=== PATIENT | female | born 1975 | race Caucasian/White ===

== ENCOUNTER 2017-10-23 06:39 | Inpatient (IN) | payer BC ==
[~2017-10-23] VITALS: Ht 175.3 cm; Wt 71.5 kg
[2017-10-23] MEDS ORDERED: SODIUM CHLORID 0.9% 500 ML IV PRN (07:00)
[2017-10-23] MEDS ORDERED: POVIDONE IODINE 5% (ANTISEPSIS KIT) 4 APPLICATIONS EACH NARE PRN (07:00)
[2017-10-23] MEDS ORDERED: CHLORHEXIDINE GLUCONATE 2 % 1 PACK (2 CLOTHS) TOPICAL PRN (07:00)
[2017-10-23] MEDS ORDERED: LACTATED RINGER'S 1000 ML IV PRN (07:00)
[2017-10-23] MEDS ORDERED: METOPROLOL TARTRATE 25 MG TAB PO PRN (07:00)
[2017-10-23] MEDS ORDERED: CHLORHEXIDINE GLUCONATE 4% SOLN 120 ML BTL TOPICAL SCH (07:00)
[2017-10-23] MEDS ORDERED: GENTAMICIN SULFATE 80 MG/2 ML VIAL ONE (08:29)
[2017-10-23] MEDS ORDERED: VANCOMYCIN HCL 1000 MG VIAL ONE (08:29)
[2017-10-23] MEDS ORDERED: SODIUM CHLOR 0.9% 250 ML INJ 250 ML ONE (08:30)
[2017-10-23] MEDS ORDERED: CLINDAMYCIN PHOS 600 MG/4 ML VIAL ONE (09:10)
[2017-10-23] MEDS ORDERED: BUPIVACAINE/EPINEPHRINE 0.25% PF 30 ML VIAL INFIL ONE (10:01)
[2017-10-23] MEDS ORDERED: diphenhydrAMINE HCL 25 MG CAP PO PRN (10:45)
[2017-10-23] MEDS ORDERED: ACETAMINOPHEN/HYDROcodone 325 MG/10 MG TAB PO PRN (10:45)
[2017-10-23] MEDS ORDERED: IOHEXOL 350 MG/ML 10 ML VIAL (for RAD DIAG) IVCONTRAST ONE (10:46)
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
[2017-10-23] MEDS ORDERED: MORPHINE SULFATE 4 MG/ML INJ IV PUSH PRN (11:00)
[2017-10-23] MEDS ORDERED: DO NOT ADM ANY ANTICOAGULANT DRUGS PRN (11:00)
[2017-10-23] MEDS ORDERED: MIDAZOLAM HCL 2 MG/2 ML VIAL ONE (11:05)
[2017-10-23] MEDS ORDERED: *diphenhydrAMINE HCL 50 MG/ML VIAL PERIprocedural Use ONLY ONE (11:08)
[2017-10-23] MEDS: LACTATED RINGER'S 1000 ML INJ 1,000 ML IV SCH ×2 (11:24→20:39)
[2017-10-23] MEDS ORDERED: *MEPERIDINE 25 MG INJ VIAL PERIprocedural Use ONLY ONE (11:47)
[2017-10-23 12:00] VITALS: BP 112/64; PULSE 63; RESP 18; TEMP 96.1; O2SAT 96
[2017-10-23] MEDS ORDERED: ONDANSETRON HCL 4 MG/2 ML VIAL IV ONE (12:00)
[2017-10-23] MEDS ORDERED: PROPOFOL 200 MG/20 ML AMP IV ONE (12:00)
[2017-10-23] MEDS ORDERED: LIDOCAINE HCL 1% PF 5 ML SYRINGE OTHER ONE (12:00)
[2017-10-23] MEDS ORDERED: ROCURONIUM INJ 50 MG/5 ML SYRINGE IV PUSH ONE (12:00)
[2017-10-23] MEDS ORDERED: LACTATED RINGER'S 1000 ML INJ 1,000 ML IV ONE (12:00)
[2017-10-23] MEDS ORDERED: oxyCODONE/ACETAMINOPHEN 10 MG/325 MG TAB PO PRN (14:00)
--- NOTE | 2017-10-23 14:14 | RADRPT ---
EXAM DATE/TIME: 10/23/2017 10:16 [facility] COMPARISON: PELVIS COMPLETE MIN 3 VWS, May 30, 2011, 10:02. INDICATIONS : Removal of hardware. MEDICAL HISTORY : Unobtainable. SURGICAL HISTORY : Unobtainable. ENCOUNTER: Initial ACUITY: 1 day PAIN SCORE: Non-responsive. LOCATION: Bilateral pelvis FINDINGS: Apparent interval removal of fixation hardware in the iliac wings. Surgical clips are seen in the pel vis. No radiopaque foreign bodies are noted. No significant acute bony fractures. CONCLUSION: 1. Status post hardware removal without significant fracture or residual radiopaque components. Sabas Lynch MD on October 23, 2017 at 14:09 Board Certified Radiologist. This report was verified electronically.
[2017-10-23] MEDS: GENTAMICIN 80 MG PREMIX 100 ML IV SCH (15:37)
[2017-10-23 16:00] VITALS: BP 107/53; PULSE 77; RESP 18; TEMP 98.6; O2SAT 98
[2017-10-23 16:15] VITALS: O2SAT 97
[2017-10-23] MEDS: ONDANSETRON HCL 4 MG/2 ML VIAL IVP PRN ×2 (17:14→21:57)
[2017-10-23] MEDS ORDERED: VANCOMYCIN INJ 1,000 MG in SODIUM CHLOR 0.9% 250 ML INJ 250 ML IV SCH (18:00)
[2017-10-23] MEDS: oxyCODONE/ACETAMINOPHEN 10 MG/325 MG TAB PO PRN ×2 (18:29→21:56)
[2017-10-23] MEDS ORDERED: Vancomycin Consult Pharmacy 1 EA OTHER SCH (18:30)
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
[2017-10-23 20:00] VITALS: BP 119/62; PULSE 82; RESP 16; TEMP 99.1; O2SAT 95
[2017-10-24] VITALS: BP 110/57; PULSE 95; RESP 16; TEMP 100.5; O2SAT 97
[2017-10-24 01:30] LABS: CREATININE 0.59 MG/DL (0.50-1.00)
[2017-10-24] MEDS: oxyCODONE/ACETAMINOPHEN 10 MG/325 MG TAB PO PRN ×3 (02:05→12:17)
[2017-10-24] MEDS: GENTAMICIN 80 MG PREMIX 100 ML IV SCH ×2 (02:06→08:00)
[2017-10-24] MEDS: LACTATED RINGER'S 1000 ML INJ 1,000 ML IV SCH ×2 (03:22→16:11)
[2017-10-24] MEDS ORDERED: VANCOMYCIN INJ 1,500 MG in SODIUM CHLORID 0.9% 500 ML INJ 500 ML IV ONE (04:00)
[2017-10-24] MEDS: ONDANSETRON HCL 4 MG/2 ML VIAL IVP PRN ×2 (04:06→07:44)
--- NOTE | 2017-10-24 07:37 | PD.ORT.PN ---
Subjective Subjective Remarks POD 1 s/p SHAYY with I&D of pelvis doing well. had severe pain yesterday but has resolved since then. resting comfortably and has been ambulatory with walker. Objective Vitals Vital Signs Date Time Temp Pulse Resp B/P (MAP) Pulse Ox O2 Delivery O2 Flow Rate FiO2 10/24/17 00:00 100.5 95 16 110/57 (74) 97 10/23/17 20:00 99.1 82 16 119/62 (81) 95 10/23/17 16:15 97 21 10/23/17 16:00 98.6 77 18 107/53 (71) 98 10/23/17 15:15 17 10/23/17 13:06 17 10/23/17 13:06 17 10/23/17 12:00 96.1 63 18 112/64 (80) 96 10/23/17 11:54 97.6 60 12 116/56 (76) 100 Room Air 10/23/17 11:45 64 16 104/53 (70) 100 Room Air 10/23/17 11:30 70 24 122/59 (80) 100 Room Air 10/23/17 11:15 62 21 115/57 (76) 96 Room Air 10/23/17 11:00 70 12 135/65 (88) 100 Room Air 10/23/17 10:55 98.2 93 24 123/56 (78) 99 Room Air I/O 10/23/17 10/23/17 10/23/17 10/24/17 10/24/17 10/24/17 07:00 15:00 23:00 07:00 15:00 23:00 Intake Total 1375 ml 350 ml 1600 ml Output Total 200 ml Balance 1175 ml 350 ml 1600 ml Intake Oral 0 ml IV Total 75 ml 350 ml 1600 ml Other 1300 ml Output Estimated Blood Loss 200 ml # Voids 0 2 Result Diagram: 10/24/17 0040 Objective Remarks Pelvis: dressings clean and dry. intact. NVI bilaterally Assessment & Plan Assessment and Plan 1) Infection of pelvis hardware with removal and I&D - POD 1 -WBAT -daily dressing changes POD 2 -PICC line placement today -patient already had infectious disease consult arrange for outpatient. just awaiting PICC line placement -plan for discharge possibly later today if doing well and line placed -otherwise, plan for DC home tomorrow Manuel Trevino PA/Animal Sticker PA Oct 24, 2017 07:37
[2017-10-24 08:00] VITALS: BP 100/54; PULSE 80; RESP 17; TEMP 98.6; O2SAT 99
[2017-10-24] MEDS ORDERED: ONDANSETRON ODT 4 MG TAB PO PRN (08:15)
[2017-10-24] MEDS ORDERED: ZOFR4TAB PO (08:16)
--- NOTE | 2017-10-24 10:03 | HHI.PR ---
Addendum to Inpatient Note Addendum Reason: Additional Documentation Additional Information patients ID doctor in [place]. meg eddy patient would like to be discharged today. Pending cultures I would recommend levaquin oral and zyvox oral as transitional plan until seen by ID doctor in [place]. This oral regimen in definitely the final ID regimen for patient but until she can be seen in follow up and a PICC line placed. cell: [phone] fax: [phone] Akilah Alonzo MD Oct 24, 2017 10:03
[2017-10-24] MEDS ORDERED: PERC10TA27 PO (10:52)
[2017-10-24 12:00] VITALS: BP 115/61; PULSE 72; RESP 18; TEMP 97.5; O2SAT 100
[2017-10-24] MEDS: ONDANSETRON HCL 4 MG/2 ML VIAL IV PUSH PRN ×3 (12:11→20:32)
[2017-10-24] MEDS ORDERED: VANCOMYCIN 1 GM/200 ML PREMIX IV SCH (13:00)
[2017-10-24 15:25] LABS: AUTOMATED NEUTROPHIL # 6.8 TH/MM3 (1.8-7.7); BASOPHIL % 0.3 % (0.0-2.0); EOSINOPHIL # 0.2 TH/MM3 (0-0.4); HEMATOCRIT 25.8 % (35.0-46.0); HEMOGLOBIN 8.7 GM/DL (11.6-15.3); LYMPH % 6.5 % (9.0-44.0); LYMPHOCYTE # 0.5 TH/MM3 (1.0-4.8); MEAN CORPUSCULAR HEMOGLOBIN 28.7 PG (27.0-34.0); MEAN CORPUSCULAR HGB CONC 33.8 % (32.0-36.0); MEAN PLATELET VOLUME 8.6 FL (7.0-11.0); MONO % 6.6 % (0.0-8.0); MONOCYTE # 0.5 TH/MM3 (0-0.9); NEUT % 84.6 % (16.0-70.0); PLATELET COUNT 187 TH/MM3 (150-450); RED BLOOD COUNT 3.03 MIL/MM3 (4.00-5.30); RED CELL DISTRIBUTION WIDTH 17.1 % (11.6-17.2); WHITE BLOOD COUNT 8.1 TH/MM3 (4.0-11.0)
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
--- NOTE | 2017-10-24 15:29 | HHI.FF ---
Face to Face Verification Diagnosis: (1) Wound infection complicating hardware Physical Therapy Gait training Right LE Weight Bearing: WB as tolerated Left LE Weight Bearing: WB as tolerated Nursing Dressing Changes: Daily dressing change, Xeroform, Coverderm/Primapore Additional Instructions picc line management and medication administration through picc line I have seen patient Kathy Lizama on 10/24/17. My clinical findings support the need for the requested home health care services because: Ltd mobility - disease progression I certify that my clinical findings support that this patient is homebound because: Post-op weakness Manuel Trevino/Typing Secretary PA Oct 24, 2017 15:29
[2017-10-24 16:00] VITALS: BP 107/56; PULSE 78; RESP 19; TEMP 97.9; O2SAT 98
[2017-10-24 16:00] LABS: ALBUMIN 2.5 GM/DL (3.4-5.0); ALT (GPT) 13 U/L (10-53); AST (GOT) 19 U/L (15-37); BICARBONATE 27.8 MEQ/L (21.0-32.0); BLOOD UREA NITROGEN 7 MG/DL (7-18); CALCIUM 7.6 MG/DL (8.5-10.1); CHLORIDE 107 MEQ/L (98-107); CREATININE 0.64 MG/DL (0.50-1.00); GLOMERULAR FILTRATION RATE 103 ML/MIN (>89); GLUCOSE,RANDOM 104 MG/DL (74-106); SODIUM (NA) 139 MEQ/L (136-145)
[2017-10-24 16:02] LABS: ALKALINE PHOSPHATASE 81 U/L (45-117); TOTAL BILIRUBIN ADULT 0.6 MG/DL (0.2-1.0); TOTAL PROTEIN 6.3 GM/DL (6.4-8.2)
[2017-10-24] MEDS ORDERED: ACETAMINOPHEN/HYDROcodone 325 MG/10 MG TAB PO PRN (16:15)
[2017-10-24] MEDS: ceFOXitin INJ 2 GM in SODIUM CHLORIDE 0.9% INJ 100 ML IV SCH (16:42)
[2017-10-24] MEDS ORDERED: DIATRIZOATE MEGLUM/DIATRIZOATE SOD 9 ML CUP PO ONE (16:45)
[2017-10-24] MEDS: LACTOBACILLUS ACIDOPHILUS TAB PO SCH (17:19)
[2017-10-24] MEDS: LINEZOLID 600 MG PREMIX 300 ML IV SCH (17:25)
[2017-10-24 20:00] VITALS: BP 130/81; PULSE 81; RESP 20; TEMP 97.9; O2SAT 99
[2017-10-24] MEDS: ACETAMINOPHEN/HYDROcodone 325 MG/10 MG TAB PO PRN (20:32)
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
[2017-10-25] VITALS: BP 113/57; PULSE 85; RESP 18; TEMP 98.5; O2SAT 96
--- NOTE | 2017-10-25 00:26 | EKG ---
Date Performed: 10/24/2017 Time Performed: 19:42:13 PTAGE: 42 years EKG: Sinus rhythm NORMAL ECG PREVIOUS TRACING : 04/17/2011 02.16 Since the prior tracing, there has been no significant garibay DOCTOR: Catarino He Interpretating Date/Time 10/25/2017 00:26:18
[2017-10-25] MEDS: ACETAMINOPHEN/HYDROcodone 325 MG/10 MG TAB PO PRN ×4 (01:40→20:30)
[2017-10-25] MEDS: ONDANSETRON HCL 4 MG/2 ML VIAL IV PUSH PRN ×3 (01:40→10:09)
[2017-10-25] MEDS: LACTATED RINGER'S 1000 ML INJ 1,000 ML IV SCH ×2 (01:41→20:34)
[2017-10-25] MEDS: ceFOXitin INJ 2 GM in SODIUM CHLORIDE 0.9% INJ 100 ML IV SCH ×5 (01:41→22:01)
[2017-10-25] MEDS: LINEZOLID 600 MG PREMIX 300 ML IV SCH ×2 (06:06→17:49)
[2017-10-25] MEDS ORDERED: HYDR-3288 PO (06:43)
--- NOTE | 2017-10-25 06:45 | PD.ORT.PN ---
Subjective Subjective Remarks POD 2 s/p SHAYY with I&D of pelvis doing well. improving. pain is better controlled. set to have picc line placement today Objective Vitals Vital Signs Date Time Temp Pulse Resp B/P (MAP) Pulse Ox O2 Delivery O2 Flow Rate FiO2 10/25/17 00:00 98.5 85 18 113/57 (75) 96 10/24/17 20:00 97.9 81 20 130/81 (97) 99 10/24/17 17:33 17 10/24/17 16:00 97.9 78 19 107/56 (73) 98 10/24/17 13:39 17 10/24/17 12:00 97.5 72 18 115/61 (79) 100 10/24/17 08:00 98.6 80 17 100/54 (69) 99 I/O 10/24/17 10/24/17 10/24/17 10/25/17 10/25/17 10/25/17 07:00 15:00 23:00 07:00 15:00 23:00 Intake Total 1600 ml 200 ml 375 ml Balance 1600 ml 200 ml 375 ml Intake Oral 375 ml IV Total 1600 ml 200 ml # Voids 2 3 # Bowel Movements 0 Result Diagram: 10/24/17 1442 10/24/17 1442 Objective Remarks Pelvis: dressings clean and dry. intact. NVI bilaterally Assessment & Plan Assessment and Plan 1) Infection of pelvis hardware with removal and I&D - POD 2 -WBAT -daily dressing changes POD 2 -PICC line placement today -patient already had infectious disease consult arrange for outpatient. just awaiting PICC line placement -plan for discharge possibly later today if doing well and line placed -f/u with Juan or PA in 2 weeks Manuel Trevino/Fitness Center Attendant LUIS Oct 25, 2017 06:45
[2017-10-25 08:00] VITALS: BP 110/59; PULSE 83; RESP 17; TEMP 97.4; O2SAT 99
[2017-10-25] MEDS: LACTOBACILLUS ACIDOPHILUS TAB PO SCH ×3 (08:22→17:48)
[2017-10-25] MEDS: SODIUM CHLORIDE 0.9% FLUSH 10 ML FLUSH IV FLUSH SCH (10:09)
[2017-10-25] MEDS ORDERED: SODIUM CHLORIDE 0.9% FLUSH 10 ML FLUSH IV FLUSH PRN (10:15)
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
[2017-10-25 12:00] VITALS: BP 97/51; PULSE 80; RESP 18; TEMP 97.4; O2SAT 100
[2017-10-25] MEDS: AMIKACIN IV SCH (12:28)
[2017-10-25] MEDS: SODIUM CHLOR 0.9% IV SCH (12:28)
[2017-10-25] MEDS ORDERED: PHARMACY ORDERED LAB ONE (12:45)
[2017-10-25] MEDS: ONDANSETRON ODT 4 MG TAB PO PRN ×2 (15:37→22:01)
[2017-10-25 16:00] VITALS: BP 103/52; PULSE 88; RESP 20; TEMP 99.1; O2SAT 100
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
[2017-10-25] MEDS: NYSTATIN 100,000 UNIT/GM CREAM 15 GM TOPICAL SCH ×2 (18:00→22:05)
[2017-10-25] MEDS: FLUCONAZOLE 100 MG TAB PO SCH (18:00)
--- NOTE | 2017-10-25 18:11 | ECHRPT ---
Indication: endocarditis CONCLUSIONS Normal left ventricular size. The left ventricular systolic function is normal with an estimated ejection fraction in the range of 55-60%. [id number] mitral valve regurgitation. No aortic valve regurgitation. No aortic valve stenosis. There is mild tricuspid valve regurgitation. The pulmonary valve is not well visualized. BP: 130 / 81 HR: Rhythm: MEASUREMENTS (Male / Female) Normal Values Technical Quality:Fair 2D ECHO LV Diastolic Diameter PLAX 5.1 cm 4.2 - 5.9 / 3.9 - 5.3 cm LV Systolic Diameter PLAX 3.9 cm IVS Diastolic Thickness 1.0 cm 0.6 - 1.0 / 0.6 - 0.9 cm LVPW Diastolic Thickness 0.9 cm 0.6 - 1.0 / 0.6 - 0.9 cm LV Relative Wall Thickness 0.4 RV Internal Dim ED PLAX 2.5 cm M-MODE Aortic Root Diameter MM 2.5 cm LA Systolic Diameter MM 3.0 cm LA Ao Ratio MM 1.2 AV Cusp Separation MM 1.8 cm DOPPLER LV E' Lateral Velocity 16.8 cm/s LV E' Septal Velocity 14.2 cm/s FINDINGS LEFT VENTRICLE Normal left ventricular size. The left ventricular systolic function is normal with an estimated ejection fraction in the range of 55-60%. RIGHT VENTRICLE Normal right ventricular size and systolic function. LEFT ATRIUM The left atrial size is normal. RIGHT ATRIUM The right atrial size is normal. ATRIAL SEPTUM Normal atrial septal thickness without atrial level shunting by limited color doppler interrogation. AORTA The aortic root and proximal ascending aorta are normal in size on limited imaging. MITRAL VALVE Structurally normal mitral valve. Uzvjo-ok-[id number] mitral valve regurgitation. AORTIC VALVE Trileaflet aortic valve. No aortic valve regurgitation. No aortic valve stenosis. TRICUSPID VALVE Structurally normal tricuspid valve. There is mild tricuspid valve regurgitation. PULMONARY VALVE The pulmonary valve is not well visualized. VESSELS The inferior vena cava is normal in size. PERICARDIUM No pericardial effusion. Navi Weinstein MD (Electronically Signed) Final Date:25 October 2017 18:10
[2017-10-25 20:00] VITALS: BP 121/72; PULSE 76; RESP 18; TEMP 98.4; O2SAT 97
[2017-10-25] MEDS: CLARITHROMYCIN 500 MG TAB PO SCH (20:29)
[2017-10-26] VITALS (8 sets, daily range): BP systolic 106–118; BP diastolic 56–69; PULSE 69–87; RESP 15–20; TEMP 95.7–98.5; O2SAT 92–100
[2017-10-26] MEDS: ceFOXitin INJ 2 GM in SODIUM CHLORIDE 0.9% INJ 100 ML IV SCH ×4 (05:08→22:35)
[2017-10-26] MEDS: LINEZOLID 600 MG PREMIX 300 ML IV SCH ×2 (05:08→17:38)
[2017-10-26] MEDS: NYSTATIN 100,000 UNIT/GM CREAM 15 GM TOPICAL SCH ×4 (05:10→22:35)
[2017-10-26] MEDS: ONDANSETRON ODT 4 MG TAB PO PRN ×3 (05:10→22:27)
[2017-10-26] MEDS: ACETAMINOPHEN/HYDROcodone 325 MG/10 MG TAB PO PRN ×3 (06:41→22:35)
--- NOTE | 2017-10-26 06:44 | PD.ORT.PN ---
Subjective Subjective Remarks Patient is awake and alert. Pain is also well controlled. No new complaints today. Nausea is improving with medications. Objective Vitals Vital Signs Date Time Temp Pulse Resp B/P (MAP) Pulse Ox O2 Delivery O2 Flow Rate FiO2 10/26/17 00:52 98.0 79 18 111/63 (79) 97 10/25/17 20:00 98.4 76 18 121/72 (88) 97 10/25/17 16:00 99.1 88 20 103/52 (69) 100 10/25/17 12:00 97.4 80 18 97/51 (66) 100 10/25/17 08:00 97.4 83 17 110/59 (76) 99 I/O 10/25/17 10/25/17 10/25/17 10/26/17 10/26/17 10/26/17 07:00 15:00 23:00 07:00 15:00 23:00 Intake Total 480 ml 350 ml 1700 ml 1080 ml Balance 480 ml 350 ml 1700 ml 1080 ml Intake Oral 480 ml 500 ml 680 ml IV Total 350 ml 1200 ml 400 ml # Voids 4 4 3 # Bowel Movements 0 0 Result Diagram: 10/24/17 1442 10/24/17 1442 Objective Remarks Kathy is awake and alert. No acute distress. Pelvis: dressings clean and dry. intact. NVI bilaterally Assessment & Plan Assessment and Plan 1) Infection of pelvis hardware with removal and I&D - POD 3 -WBAT -daily dressing changes POD 3 -PICC line placement today -ABX per ID -possible IR for drainage of pelvic abcess today Eulalio Martinez MD Oct 26, 2017 06:44
[2017-10-26] MEDS: SODIUM CHLORIDE 0.9% FLUSH 10 ML FLUSH IV FLUSH SCH (10:32)
[2017-10-26] MEDS: FLUCONAZOLE 100 MG TAB PO SCH (10:33)
[2017-10-26] MEDS: LACTOBACILLUS ACIDOPHILUS TAB PO SCH ×3 (10:33→17:38)
[2017-10-26] MEDS: CLARITHROMYCIN 500 MG TAB PO SCH ×2 (10:33→22:28)
[2017-10-26] MEDS: LACTATED RINGER'S 1000 ML INJ 1,000 ML IV SCH ×2 (10:36→17:38)
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
[2017-10-26] MEDS ORDERED: LIDOCAINE HCL 1% 20 ML VIAL ONE (13:55)
[2017-10-26] MEDS ORDERED: fentaNYL CITRATE 250 MCG/5 ML AMP ONE (14:23)
[2017-10-26] MEDS ORDERED: MIDAZOLAM HCL 2 MG/2 ML VIAL ONE (14:24)
--- NOTE | 2017-10-26 14:52 | PD.RAD ---
Post CT Procedure Prog Note Pre Procedure Diagnosis: (1) Wound infection complicating hardware Post Procedure Diagnosis: (1) Wound infection complicating hardware Procedure Date: Oct 26, 2017 Supervising Radiologist: Camden Jacobs JR Anesthesia: Conscious Sedation Plan of Activity Patient to Unit: ROPU Patient Condition: Good Additional Comments: Concern for possible fluid collection involving right iliacus m.. Under CT guidance an 18G needle was passed down into the right iliacus m.. No fluid obtained. See PACS Report for procedural detail/treatment Jr. Reynaldo,Camden Mcknight MD Oct 26, 2017 14:52
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
[2017-10-27] VITALS: BP 119/70; PULSE 70; RESP 15; TEMP 98.4; O2SAT 98
[2017-10-27] MEDS: ONDANSETRON ODT 4 MG TAB PO PRN ×2 (04:04→11:06)
[2017-10-27] MEDS: ceFOXitin INJ 2 GM in SODIUM CHLORIDE 0.9% INJ 100 ML IV SCH ×3 (04:05→16:41)
[2017-10-27] MEDS: LACTATED RINGER'S 1000 ML INJ 1,000 ML IV SCH ×2 (04:15→20:29)
[2017-10-27] MEDS: LINEZOLID 600 MG PREMIX 300 ML IV SCH ×2 (04:16→17:42)
[2017-10-27] MEDS: NYSTATIN 100,000 UNIT/GM CREAM 15 GM TOPICAL SCH ×3 (04:16→17:48)
--- NOTE | 2017-10-27 07:09 | PD.ORT.PN ---
Subjective Subjective Remarks Continued to progress well. States that nausea has improved significantly. She is taking [place] 7.5/325's and is controlling pain effectively Objective Vitals Vital Signs Date Time Temp Pulse Resp B/P (MAP) Pulse Ox O2 Delivery O2 Flow Rate FiO2 10/27/17 00:00 98.4 70 15 119/70 (86) 98 10/26/17 20:00 98.2 87 15 116/66 (83) 98 10/26/17 16:00 96.8 71 17 109/56 (73) 99 10/26/17 15:30 70 20 116/67 (83) 93 10/26/17 15:15 80 20 106/68 (81) 92 10/26/17 15:00 98.5 77 18 109/69 (82) 95 10/26/17 12:00 96.9 69 17 118/59 (78) 99 10/26/17 08:00 95.7 75 17 117/58 (77) 100 10/26/17 07:41 16 I/O 10/26/17 10/26/17 10/26/17 10/27/17 10/27/17 10/27/17 07:00 15:00 23:00 07:00 15:00 23:00 Intake Total 1080 ml 100 ml 1120 ml 1740 ml Balance 1080 ml 100 ml 1120 ml 1740 ml Intake Oral 680 ml 720 ml 240 ml IV Total 400 ml 100 ml 400 ml 1500 ml # Voids 3 4 2 # Bowel Movements 0 1 0 Result Diagram: 10/24/17 1442 10/24/17 1442 Objective Remarks Kathy is awake and alert. No acute distress. Pelvis: Dressings are clean dry and intact both right anterior and left posterior. She continues to have drainage over right posterior incision. Distally bilateral lower extremities intact sensation and active dorsal flexion plantar flexion of feet Assessment & Plan Assessment and Plan 1) Infection of pelvis hardware with removal and I&D - POD 4 -WBAT -daily dressing changes -PICC line placement -ABX per ID Plan on discharge to home today with antibiotics managed by infectious disease. She will make sure her infectious disease doctor in [place] is up-to-date with cultures and antibiotic plan. They will continue to do blood work weekly to evaluate kidney and liver functions. She will return in 2 weeks for follow- up x-rays and examination by Dr. Zavala or PA. Melvin Frederick Jr. Oct 27, 2017 07:09
[2017-10-27 08:00] VITALS: BP 120/63; PULSE 68; RESP 18; TEMP 97.6; O2SAT 100
[2017-10-27] MEDS: LACTOBACILLUS ACIDOPHILUS TAB PO SCH ×3 (10:48→17:42)
[2017-10-27] MEDS: CLARITHROMYCIN 500 MG TAB PO SCH ×2 (10:48→20:29)
[2017-10-27] MEDS: FLUCONAZOLE 100 MG TAB PO SCH (10:48)
[2017-10-27] MEDS: AMIKACIN IV SCH (11:48)
[2017-10-27] MEDS: SODIUM CHLOR 0.9% IV SCH (11:48)
[2017-10-27 12:00] VITALS: BP 128/63; PULSE 79; RESP 20; TEMP 96.1; O2SAT 97
[2017-10-27] MEDS: ACETAMINOPHEN/HYDROcodone 325 MG/10 MG TAB PO PRN ×2 (15:18→20:48)
[2017-10-27 16:00] VITALS: BP 126/73; PULSE 74; RESP 20; TEMP 96.9; O2SAT 97
[2017-10-27 20:00] VITALS: BP 119/67; PULSE 72; RESP 20; TEMP 97.7; O2SAT 98
[2017-10-27] MEDS: ONDANSETRON HCL 4 MG/2 ML VIAL IV PUSH PRN (20:38)
[2017-10-28] VITALS: BP 124/66; PULSE 62; RESP 18; TEMP 98.3; O2SAT 98
[2017-10-28] MEDS: ceFOXitin INJ 2 GM in SODIUM CHLORIDE 0.9% INJ 100 ML IV SCH ×5 (00:09→23:42)
[2017-10-28] MEDS: NYSTATIN 100,000 UNIT/GM CREAM 15 GM TOPICAL SCH ×5 (00:10→23:43)
[2017-10-28] MEDS: ONDANSETRON ODT 4 MG TAB PO PRN ×3 (00:12→21:06)
[2017-10-28] MEDS: LINEZOLID 600 MG PREMIX 300 ML IV SCH ×2 (05:07→16:30)
[2017-10-28] MEDS: LACTATED RINGER'S 1000 ML INJ 1,000 ML IV SCH ×3 (05:07→20:39)
[2017-10-28] MEDS: ACETAMINOPHEN/HYDROcodone 325 MG/10 MG TAB PO PRN ×2 (06:15→21:02)
--- NOTE | 2017-10-28 07:26 | PD.ORT.PN ---
Subjective Subjective Remarks POD 5 s/p SHAYY with I&D of pelvis doing well. improving. pain is better controlled. PICC line placed. patient ambulatory to bathroom with minimal difficulty or discomfort. states infectious dz waiting on cultures Objective Vitals Vital Signs Date Time Temp Pulse Resp B/P (MAP) Pulse Ox O2 Delivery O2 Flow Rate FiO2 10/28/17 00:00 98.3 62 18 124/66 (85) 98 10/27/17 20:00 97.7 72 20 119/67 (84) 98 10/27/17 16:00 96.9 74 20 126/73 (90) 97 10/27/17 12:00 96.1 79 20 128/63 (84) 97 10/27/17 08:00 97.6 68 18 120/63 (82) 100 I/O 10/27/17 10/27/17 10/27/17 10/28/17 10/28/17 10/28/17 07:00 15:00 23:00 07:00 15:00 23:00 Intake Total 1740 ml 1200 ml 720 ml Balance 1740 ml 1200 ml 720 ml Intake Oral 240 ml 1200 ml 720 ml IV Total 1500 ml # Voids 2 5 4 # Bowel Movements 0 1 Result Diagram: 10/24/17 1442 10/24/17 1442 Objective Remarks Kathy is awake and alert. No acute distress. Pelvis: Dressings are clean dry and intact both right anterior and left posterior. She continues to have drainage over right posterior incision. Distally bilateral lower extremities intact sensation and active dorsal flexion plantar flexion of feet Assessment & Plan Assessment and Plan 1) Infection of pelvis hardware with removal and I&D - POD 5 -WBAT -daily dressing changes -ABX per ID Plan on discharge to home today with antibiotics managed by infectious disease. She will make sure her infectious disease doctor in [place] is up-to-date with cultures and antibiotic plan. They will continue to do blood work weekly to evaluate kidney and liver functions. She will return in 2 weeks for follow- up x-rays and examination by Dr. Zavala or PA. will call out to infectious dz today to manage Abx. Manuel Trevino/First Babatunde SMITH Oct 28, 2017 07:26
--- NOTE | 2017-10-28 07:29 | HHI.DS ---
Discharge Summary Admission Date Oct 23, 2017 at 10:45 Discharge Date: Oct 28, 2017 Admitting Diagnosis Infection of pelvic hardware Diagnosis: (1) Wound infection complicating hardware Diagnosis: Principal ICD Codes: T84.7XXA - Infection and inflammatory reaction due to other internal orthopedic prosthetic devices, implants and grafts, initial encounter Procedures Irrigation and debridement with removal of hardware of pelvis CBC/BMP: 10/24/17 1442 10/24/17 1442 PE at Discharge Kathy is awake and alert. No acute distress. Pelvis: Dressings are clean dry and intact both right anterior and left posterior. She continues to have drainage over right posterior incision. Distally bilateral lower extremities intact sensation and active dorsal flexion plantar flexion of feet Hospital Course Patient admitted from an outpatient basis on October 23 for irrigation and debridement with removal of hardware from the pelvis. She tolerated the procedure well. Postop day 0 as of day one she had significantly increased pain in her pain management was rearranged to accommodate. By postop day 1 her pain was better controlled. By postoperative day 2 her pain was minimal and she was ambulatory with minimal discomfort. Cultures were resulted in infectious diseases consult it. On postoperative day 4 PICC line was placed. By postop day 5 cultures were finalized, she was hemodynamically stable, PICC line was placed, outpatient antibiotics were arranged, and she is fit for discharge home. Infectious disease will manage IV antibiotics on an outpatient basis. She will follow up in 2 weeks for repeat exam and wound check with Dr. Zavala. She'll do daily dressing changes of her wounds until a time. She'll have a regular diet and continue fully weightbearing Pt Condition on Discharge: Good Discharge Disposition: Disch w/ Home Health Serv Discharge Instructions Diet Instructions: As Tolerated, No Restrictions Activities You Can Perform: Weight Bearing as Nora Follow up Referrals: Orthopedics - 2 Weeks @ [facility] with Eulalio Zavala MD New Medications: Hydrocodone-Acetaminophen ([place]) 7.5-325 mg Tab 1 TAB PO Q4H PRN for PAIN, #60 TAB 0 Refills Ondansetron (Zofran) 4 Mg Tab 4 MG PO Q6HR PRN for NAUSEA OR VOMITING for 14 Days, TAB 0 Refills Manuel Trevino/Licensed Audiologist LUIS Oct 28, 2017 07:29
[2017-10-28 08:00] VITALS: BP 106/55; PULSE 74; RESP 18; TEMP 97.8; O2SAT 97
[2017-10-28] MEDS: SODIUM CHLORIDE 0.9% FLUSH 10 ML FLUSH IV FLUSH SCH (09:00)
[2017-10-28] MEDS: LACTOBACILLUS ACIDOPHILUS TAB PO SCH ×3 (09:41→17:19)
[2017-10-28] MEDS: FLUCONAZOLE 100 MG TAB PO SCH (09:41)
[2017-10-28] MEDS: CLARITHROMYCIN 500 MG TAB PO SCH ×2 (09:42→20:53)
[2017-10-28 12:00] VITALS: BP 122/61; PULSE 75; RESP 18; TEMP 97.1; O2SAT 100
[2017-10-28] MEDS: metroNIDAZOLE 500 MG TAB PO SCH ×2 (12:00→20:53)
[2017-10-28 16:00] VITALS: BP 127/68; PULSE 70; RESP 16; TEMP 97.4; O2SAT 98
[2017-10-28 20:00] VITALS: BP 119/67; PULSE 73; RESP 20; TEMP 98.2; O2SAT 99
[2017-10-29] VITALS: BP 117/70; PULSE 63; RESP 18; TEMP 97.8; O2SAT 100
[2017-10-29] MEDS: ceFOXitin INJ 2 GM in SODIUM CHLORIDE 0.9% INJ 100 ML IV SCH ×2 (04:29→13:14)
[2017-10-29] MEDS: metroNIDAZOLE 500 MG TAB PO SCH ×2 (04:29→13:15)
[2017-10-29] MEDS: NYSTATIN 100,000 UNIT/GM CREAM 15 GM TOPICAL SCH ×2 (06:00→12:00)
[2017-10-29] MEDS: LACTATED RINGER'S 1000 ML INJ 1,000 ML IV SCH (06:09)
[2017-10-29] MEDS: LINEZOLID 600 MG PREMIX 300 ML IV SCH (06:09)
[2017-10-29] MEDS: ONDANSETRON ODT 4 MG TAB PO PRN (06:20)
[2017-10-29] MEDS: ACETAMINOPHEN/HYDROcodone 325 MG/10 MG TAB PO PRN (06:20)
--- NOTE | 2017-10-29 06:46 | PD.ORT.PN ---
Subjective Subjective Remarks Continued to progress well. She is anxious to be discharged. Objective Vitals Vital Signs Date Time Temp Pulse Resp B/P (MAP) Pulse Ox O2 Delivery O2 Flow Rate FiO2 10/29/17 00:00 97.8 63 18 117/70 (86) 100 10/28/17 20:00 98.2 73 20 119/67 (84) 99 10/28/17 16:00 97.4 70 16 127/68 (87) 98 10/28/17 12:00 97.1 75 18 122/61 (81) 100 10/28/17 08:00 97.8 74 18 106/55 (72) 97 I/O 10/28/17 10/28/17 10/28/17 10/29/17 10/29/17 10/29/17 07:00 15:00 23:00 07:00 15:00 23:00 Intake Total 720 ml 2300 ml Balance 720 ml 2300 ml Intake Oral 720 ml 2300 ml # Voids 4 5 # Bowel Movements 1 3 Procedures Irrigation and debridement with removal of hardware of pelvis Objective Remarks Kathy is awake and alert. No acute distress. Pelvis: Dressings are clean dry and intact both right anterior and left posterior. She continues to have drainage over right posterior incision. Distally bilateral lower extremities intact sensation and active dorsal flexion plantar flexion of feet Assessment & Plan Problem List: (1) Wound infection complicating hardware ICD Codes: T84.7XXA - Infection and inflammatory reaction due to other internal orthopedic prosthetic devices, implants and grafts, initial encounter Assessment and Plan 1) Infection of pelvis hardware with removal and I&D - POD 6 -WBAT -daily dressing changes - Xeroform -ABX per ID Plan on discharge to home today with antibiotics managed by infectious disease. She will make sure her infectious disease doctor in [place] is up-to-date with cultures and antibiotic plan. They will continue to do blood work weekly to evaluate kidney and liver functions. She will return in 2 weeks for follow- up x-rays and examination by Dr. Zavala or [place]. will call out to infectious dz today to manage Abx. Melvin Frederick Jr. Oct 29, 2017 06:46
[2017-10-29 08:00] VITALS: BP 111/57; PULSE 68; RESP 18; TEMP 97.7; O2SAT 98
[2017-10-29] MEDS: FLUCONAZOLE 100 MG TAB PO SCH (08:23)
[2017-10-29] MEDS: CLARITHROMYCIN 500 MG TAB PO SCH (08:23)
[2017-10-29] MEDS: LACTOBACILLUS ACIDOPHILUS TAB PO SCH ×2 (08:24→13:15)
[2017-10-29] MEDS ORDERED: TIGECYCLINE INJ 100 MG in SODIUM CHLORIDE 0.9% INJ 100 ML IV ONE (10:00)
--- NOTE | 2017-10-29 11:05 | HHI.FF ---
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 Coded Allergies: Penicillins (Verified Allergy, Severe, Rash, 10/22/17) Administer Medication Tigecycline 50 mg IV q 12 hours Stop date per patients ID doctor. Start Treatment: Oct 29, 2017 Stop Treatment: Dec 13, 2017 Administer Medication Cefoxitin 2 gm IV every 8 hours Start Treatment: Oct 29, 2017 Stop Treatment: Dec 13, 2017 Administer Medication Amikacin 700 mg IV once a day every , , Sunday Start Treatment: Oct 29, 2017 Stop Treatment: Dec 13, 2017 Additional Information Additional Medications Clarithromycin 500 mg po every 8 hours Flagyl 500 mg po every 8 hours. Venous access: PICC Line Additional Instructions [x] Peripheral flush and dressing changes per protocol [x] Implanted port and central gas line servicer: * Implanted port: 10 ml Normal Saline followed by 5 ml Heparin 100 units/ml Heparin flush after each use and monthly to maintain. [] May leave port accessed during therapy. [] May leave peripheral site accessed for duration of therapy. [x] If patient has SOB or respiratory distress, check oxygen saturation. If less than 90% or clinical signs of respiratory distress, administer oxygen at 2 L/min. via nasal cannula and notify physician. [x] Anaphylaxis/Reaction orders: * Stop infusion. * Keep IV line open with saline flush. * Notify physician. * Monitor vital signs every 15 minutes until symptoms resolve. * Check Oxygen saturation; Oxygen at 2 L/min. via nasal cannula if less than 90% or clinical signs of respiratory distress. * Administer diphenhydramine (Benadryl) 25 mg IV STAT, (unless patient has received as pre-med). May repeat once, if necessary. * Solu-Cortef 250 mg IVP over 30-60 seconds, use 100 mg vials for each dissolution. * Epinephrine (1mg/1 ml) 0.3 mg subcutaneously or IVP now with any signs of respiratory distress. * Check with physician for new additional pre-med orders if patient is re- challenged or re-treated. [x] May remove PICC line when treatment complete, after confirming with Physician. [x] If the patient is admitted to the hospital, the ED, or transferred via [facility] , complete transfer form including medication reconciliation order sheet. Laboratory Tests Weekly Labs: Amikacin Level, CBC w/diff, Creatinine, CRP, LFT's (Hepatic function test) Additional Information Please draw weekly labs CBC with diff, Cr, LFTs,CRP. Please draw additional BMP and Amikacin level every Sunday. Patient to schedule appointments for audiogram every week starting this week while on Amikacin to assess Ototoxicity. Fax and Call with abnormals, change in clinical condition or problems to: (ID physician known to patient in [place]) fax: [phone] Follow up appt: Patient to schedule follow up appt with within 5 days post discharge. Follow up with PCP Follow up with other MDs as planned. Counseling: Counseled about medication side effects Counseled about PICC line care and hand hygiene. Counseled about Cdiff and importance of early testing. Akilah Alonzo MD Oct 29, 2017 11:05
[2017-10-29] MEDS ORDERED: [UNRECOGNIZED DRUG - CODE] IV (11:12)
[2017-10-29] MEDS ORDERED: AMIK4INJ2 IV (11:12)
[2017-10-29] MEDS ORDERED: EPIN1INJ21 IV PUSH (11:12)
[2017-10-29] MEDS ORDERED: [UNRECOGNIZED DRUG - CODE] IV (11:12)
[2017-10-29] MEDS ORDERED: EPIN1INJ21 SQ (11:12)
[2017-10-29] MEDS ORDERED: SOLU250I IV PUSH (11:12)
[2017-10-29] MEDS ORDERED: LACTTAB8 PO (11:13)
[2017-10-29] MEDS ORDERED: CLAR500T PO (11:14)
[2017-10-29] MEDS ORDERED: METR-1 PO (11:14)
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
[2017-10-29 11:50] LABS: AUTOMATED NEUTROPHIL # 3.2 TH/MM3 (1.8-7.7); BASOPHIL % 0.6 % (0.0-2.0); EOSINOPHIL # 0.3 TH/MM3 (0-0.4); EOSINOPHIL % 4.7 % (0.0-4.0); HEMATOCRIT 25.7 % (35.0-46.0); HEMOGLOBIN 8.5 GM/DL (11.6-15.3); LYMPH % 28.3 % (9.0-44.0); LYMPHOCYTE # 1.6 TH/MM3 (1.0-4.8); MEAN CELL VOLUME 83.9 FL (80.0-100.0); MEAN CORPUSCULAR HEMOGLOBIN 27.8 PG (27.0-34.0); MEAN CORPUSCULAR HGB CONC 33.2 % (32.0-36.0); MEAN PLATELET VOLUME 7.8 FL (7.0-11.0); MONO % 10.7 % (0.0-8.0); MONOCYTE # 0.6 TH/MM3 (0-0.9); NEUT % 55.7 % (16.0-70.0); PLATELET COUNT 309 TH/MM3 (150-450); RED BLOOD COUNT 3.06 MIL/MM3 (4.00-5.30); RED CELL DISTRIBUTION WIDTH 17.3 % (11.6-17.2); WHITE BLOOD COUNT 5.7 TH/MM3 (4.0-11.0)
[2017-10-29 12:00] VITALS: BP 117/69; PULSE 75; RESP 18; TEMP 97.8; O2SAT 99
[2017-10-29 12:08] LABS: ALBUMIN 2.8 GM/DL (3.4-5.0); ALT (GPT) 17 U/L (10-53); AST (GOT) 13 U/L (15-37); BICARBONATE 27.9 MEQ/L (21.0-32.0); BLOOD UREA NITROGEN 4 MG/DL (7-18); CALCIUM 8.5 MG/DL (8.5-10.1); CHLORIDE 103 MEQ/L (98-107); CREATININE 0.67 MG/DL (0.50-1.00); GLOMERULAR FILTRATION RATE 97 ML/MIN (>89); GLUCOSE,RANDOM 83 MG/DL (74-106); SODIUM (NA) 139 MEQ/L (136-145)
[2017-10-29 12:10] LABS: ALKALINE PHOSPHATASE 180 U/L (45-117); TOTAL BILIRUBIN ADULT 0.5 MG/DL (0.2-1.0); TOTAL PROTEIN 7.5 GM/DL (6.4-8.2)
[2017-10-29] MEDS ORDERED: TIGECYCLINE INJ 50 MG in SODIUM CHLORIDE 0.9% INJ 100 ML IV SCH (22:00)
== END 2017-10-29 16:23 | disposition home health service (06) | DRG 496 ==
LOC: HSDC 06:39 → HSDI 10:45 → N07A 12:03 → OBSVTOIN 10-26 12:15
PROVIDERS: ADMIT Orthopaedic Surgery Orthopaedic Trauma; ATTEND Orthopaedic Surgery Orthopaedic Trauma
PROC: 0KBP0ZZ Excision of Left Hip Muscle, Open Approach (ICD-10-PCS; 2017-10-23)
PROC: 0QP104Z Removal of Internal Fixation Device from Sacrum, Open Approach (ICD-10-PCS; 2017-10-23)
PROC: 0QB30ZZ Excision of Left Pelvic Bone, Open Approach (ICD-10-PCS; 2017-10-23)
PROC: 0QP304Z Removal of Internal Fixation Device from Left Pelvic Bone, Open Approach (ICD-10-PCS; principal; 2017-10-23 08:18)
PROC: 02HV33Z Insertion of Infusion Device into Superior Vena Cava, Percutaneous Approach (ICD-10-PCS; 2017-10-25)
PROC: [UNRECOGNIZED PROCEDURE] (2017-10-26)
DX: T84.69XA Infection and inflammatory reaction due to internal fixation device of other site, initial encounter (principal); L02.31 Cutaneous abscess of buttock; M86.9 Osteomyelitis, unspecified; B95.2 Enterococcus as the cause of diseases classified elsewhere; Z88.0 Allergy status to penicillin
CPT/HCPCS: 10022; 36569; 71045; 72132; 72170; 74177; 76000; 76937; 76999; 77012; 80053; 82565; 85025; 86140; 87015; 87070; 87076; 87077; 87102; 87116; 87176; 87185; 87186; 87205; 87206; 93005; 93306; 94150; 96374; 99152; 99153; C1769; G0378; J0278; J0694; J1200; J1580; J1642; J2020; J2175; J2250; J2270; J2405; J3010; J3243; J3370; J7040; J7050; J7120; Q9963; Q9967